=== PATIENT | female | born 1975 | race Caucasian/White ===

== ENCOUNTER 2017-11-06 10:20 | Emergency (ER) | payer SELFPAY ==
[~2017-11-06] VITALS: Ht 167.6 cm; Wt 97.1 kg
[~2017-11-06 10:20] MED LIST: ALPRAZOLAM PO; BACTRIM DS 8001 TAB PO; BACTROBAN2% NS; CEPHALEXIN500 M1 PO; DESYREL 50MG50 MG PO; DESYREL DIVIDO150 M1; DOXYCYCLINE 10100 MG PO; EC NAPROSYN375 MG PO; FLEXERIL 1010 MG/TAB PO; FLEXERIL10 MG PO; KLONOPIN 0.5MG0.5 MG PO; MACROBID 1100 MG/CAP PO; MONISTAT 3 COMB1 KI1; NORCO 325 MG-51 TAB PO; PEN-VEE K500 MG PO; PRIL40 PO; REMERON15 MG PO; ULTRAM50 MG PO; ZOFRAN 4MG T4 MG/TAB PO
[2017-11-06 10:26] VITALS: BP 162/103; PULSE 114; TEMP 97.5
[2017-11-06] MEDS ORDERED: PEN-VEE K500 MG PO (10:40)
[2017-11-06] MEDS ORDERED: NORCO 325 MG-51 TAB PO ×2 (10:40→10:45)
== END 2017-11-06 10:51 | disposition home or self-care (01) ==
LOC: COL.ER 10:20
DX: K08.89 Other specified disorders of teeth and supporting structures (principal); F41.9 Anxiety disorder, unspecified; F17.210 Nicotine dependence, cigarettes, uncomplicated

== ENCOUNTER 2017-11-12 19:50 | Emergency (ER) | payer SELFPAY ==
[~2017-11-12] VITALS: Ht 167.6 cm; Wt 97.7 kg
[2017-11-12 19:58] VITALS: BP 133/87; TEMP 98
[2017-11-12] MEDS ORDERED: AMOXICILLIN/CLA1 TA1 PO (20:22)
[2017-11-12] MEDS ORDERED: NEXIUM 24HR20 M1 PO (20:24)
[2017-11-12 20:31] VITALS: PULSE 79
== END 2017-11-12 20:31 | disposition home or self-care (01) ==
LOC: COL.ER 19:50
DX: K05.6 Periodontal disease, unspecified (principal); F41.9 Anxiety disorder, unspecified; F17.210 Nicotine dependence, cigarettes, uncomplicated

== ENCOUNTER 2018-02-22 13:22 | Emergency (ER) | payer MEDICAID ==
[~2018-02-22] VITALS: Ht 12.8 cm; Wt 81.8 kg
[~2018-02-22 13:22] MED LIST changes: +AMOXICILLIN/CLA1 TA1 PO; +NEXIUM 24HR20 M1 PO
[2018-02-22 13:25] VITALS: BP 125/77
[2018-02-22] MEDS ORDERED: ADVIL200 MG PO (13:31)
[2018-02-22] MEDS ORDERED: NORCO 325 MG-51 TAB PO (14:06)
[2018-02-22] MEDS ORDERED: AMOXICILLIN 50500 MG PO (14:06)
[2018-02-22 14:12] VITALS: PULSE 102; TEMP 97
== END 2018-02-22 14:11 | disposition home or self-care (01) ==
LOC: COL.ER 13:22
DX: K02.9 Dental caries, unspecified (principal); I10 Essential (primary) hypertension; F41.9 Anxiety disorder, unspecified; F17.210 Nicotine dependence, cigarettes, uncomplicated

== ENCOUNTER 2021-01-16 08:26 | Emergency (ER) | payer MEDICAID ==
[~2021-01-16] VITALS: Ht 167.6 cm; Wt 90.9 kg
[~2021-01-16 08:26] MED LIST changes: +ADVIL200 MG PO; +AMOXICILLIN 50500 MG PO
[2021-01-16 08:32] VITALS: TEMP 98.3
[2021-01-16 09:39] LABS: BASO # 0.1 K/mm3 (0.0-0.2); BASO % 0.3 % (0.0-2.0); EOS % 0.1 % (0-4.0); GRAN # 13.3 K/mm3 (1.4-6.5); GRAN % 87.7 % (42.2-75.2); HEMATOCRIT 45.4 % (37.0-47.0); LYMPH # 1.1 K/mm3 (1.2-3.4); LYMPH % 7.1 % (20.0-51.0); MEAN CELL VOLUME 99 fl (80.0-100.0); MEAN CORPUSCULAR HEMOGLOBIN 33 pg (27.0-31.0); MEAN CORPUSCULAR HGB CONC 33 g/dl (33.0-37.0); MEAN PLATELET VOLUME 12.1 fl (7.4-10.4); MONO # 0.7 K/mm3 (0.1-0.6); MONO % 4.3 % (1.7-9.3); PLATELET COUNT 311 K/mm3 (130-400); RED BLOOD COUNT 4.59 M/mm3 (4.10-5.30); REDCELL DISTRIBUTION WIDTH-CV 18.6 % (11.5-14.5)
[2021-01-16 09:52] LABS: ALBUMIN 4.5 gm/dL (3.5-5.0); C-REACTIVE PROTEIN 1.4 mg/dL (0.00-0.50); CALCIUM 10.7 mg/dL (8.4-10.2); CREATININE, serum 0.74 mg/dL (0.57-1.11); POTASSIUM 3.7 mmol/L (3.5-4.5)
[2021-01-16] MEDS ORDERED: PRINZIDE 12.5 M1 TAB PO (11:13)
[2021-01-16] MEDS ORDERED: ZOFRAN ODT4 MG PO (11:14)
[2021-01-16] MEDS ORDERED: AMOXICILLIN 50500 MG PO (11:34)
[2021-01-16 11:47] VITALS: BP 132/99; PULSE 98
[2021-01-23] MEDS ORDERED: NEXIUM 20MG20 MG PO (11:19)
[2021-01-23] MEDS ORDERED: MOTRIN 600600 MG/TAB PO (16:02)
[2021-01-23] MEDS ORDERED: NORCO 325 MG-51 TAB PO (16:02)
== END 2021-01-16 11:52 | disposition home or self-care (01) ==
LOC: COL.ER 08:26
PROVIDERS: Family Medicine
DX: S02.5XXA Fracture of tooth (traumatic), initial encounter for closed fracture (principal); K80.20 Calculus of gallbladder without cholecystitis without obstruction; K04.7 Periapical abscess without sinus; I10 Essential (primary) hypertension; F17.210 Nicotine dependence, cigarettes, uncomplicated; Z20.822 Contact with and (suspected) exposure to COVID-19; X58.XXXA Exposure to other specified factors, initial encounter
CPT/HCPCS: J2405; J7120; Q9967

== ENCOUNTER → 2021-01-23 | Day surgery (SDC) | payer MEDICAID ==
[2021-01-23] VITALS (7 sets, daily range): BP systolic 104–126; BP diastolic 78–88; PULSE 90–134; TEMP 97.8–99.3
[~2021-01-23] VITALS: Ht 167.6 cm; Wt 101.6 kg
[~2021-01-23] MED LIST changes: +MOTRIN 600600 MG/TAB PO; +NEXIUM 20MG20 MG PO; +PRINZIDE 12.5 M1 TAB PO; +ZOFRAN ODT4 MG PO
[2021-01-23 11:50] LABS: BASO # 0.1 K/mm3 (0.0-0.2); BASO % 0.4 % (0.0-2.0); EOS % 0.1 % (0-4.0); GRAN # 17.2 K/mm3 (1.4-6.5); GRAN % 87.4 % (42.2-75.2); HEMATOCRIT 47.2 % (37.0-47.0); HEMOGLOBIN 15.8 g/dl (12.5-16.0); LYMPH # 1.2 K/mm3 (1.2-3.4); MEAN CELL VOLUME 99 fl (80.0-100.0); MEAN CORPUSCULAR HEMOGLOBIN 33 pg (27.0-31.0); MEAN CORPUSCULAR HGB CONC 34 g/dl (33.0-37.0); MEAN PLATELET VOLUME 12.6 fl (7.4-10.4); MONO # 1.1 K/mm3 (0.1-0.6); MONO % 5.3 % (1.7-9.3); PLATELET COUNT 291 K/mm3 (130-400); RED BLOOD COUNT 4.79 M/mm3 (4.10-5.30); REDCELL DISTRIBUTION WIDTH-CV 18.2 % (11.5-14.5)
[2021-01-23 11:52] LABS: INR 1.1 (0.8-3.0); PROTHROMBIN TIME 11.7 SECONDS (9.7-12.8)
[2021-01-23 11:57] LABS: ALBUMIN 4.3 gm/dL (3.5-5.0); BILIRUBIN,TOTAL 1.1 mg/dL (0.2-1.2); CALCIUM 10.9 mg/dL (8.4-10.2); CREATININE, serum 0.85 mg/dL (0.57-1.11); POTASSIUM 3.4 mmol/L (3.5-4.5); TOTAL PROTEIN 8.6 gm/dL (6.2-8.1)
--- NOTE | 2021-01-23 15:40 | NUR ---
Patient returns to room 3 per cart from PACU and is alert and sitting up on the cart. Denies pain or nausea. IV fluids infusing and site is free of redness or swelling. Taking water. Siderails up x2 and call light in reach. Abdominal incisions x5 on abdomen are intact with wound edges well approixmated.
--- NOTE | 2021-01-23 15:55 | NUR ---
Resting and talking with friend.
--- NOTE | 2021-01-23 16:10 | NUR ---
Resting and sipping on water. Continues to deny pain.
--- NOTE | 2021-01-23 16:25 | NUR ---
Resting with eyes closed when not disturbed.
--- NOTE | 2021-01-23 16:40 | NUR ---
Continues to rest and drink water. Denies pain at present time.
--- NOTE | 2021-01-23 17:15 | NUR ---
Assisted up to the bathroom and voids. Complains of pain with movement.
--- NOTE | 2021-01-23 17:26 | NUR ---
Medicated with Ledbetter 5mg one tab for complaints of pain. Eating applesauce.
--- NOTE | 2021-01-23 17:45 | NUR ---
IV discontinued and site is free of redness. Patient dresses self. Dismissal instructions given and informed that scripts would be availalbe for pick up and delivery driver at [facility].
--- NOTE | 2021-01-23 17:49 | NUR ---
Patient dismissed to home driven by friend and taken to the vehicle per wheelchair and assisted into vehicle.
== END ==
LOC: SDCO 10:24
PROVIDERS: Surgery
DX: K80.10 Calculus of gallbladder with chronic cholecystitis without obstruction (principal); I10 Essential (primary) hypertension; G89.29 Other chronic pain; K21.9 Gastro-esophageal reflux disease without esophagitis; E66.9 Obesity, unspecified; F17.210 Nicotine dependence, cigarettes, uncomplicated; F10.10 Alcohol abuse, uncomplicated; Z79.899 Other long term (current) drug therapy; Z98.51 Tubal ligation status
CPT/HCPCS: J0690; J1100; J1885; J2370; J2405; J2704; J3010; J7050; J7120; Q9967

== ENCOUNTER → 2021-04-07 | Outpatient (CLI) | payer MEDICAID | LOC: MC.RAD 10:03 | DX: Z12.31 Encounter for screening mammogram for malignant neoplasm of breast (principal) ==

== ENCOUNTER → 2022-06-25 | Outpatient (CLI) | payer MEDICAID ==
[~2022-06-25] MED LIST changes: +LAMICTAL 25MG T25 MG PO; +METAMUCIL0.52 G1 PO; +MIRALAX510G PO; +PROTONIX 40MG T40 MG PO
== END ==
LOC: MC.RAD 08:33
DX: Z12.31 Encounter for screening mammogram for malignant neoplasm of breast (principal)

== ENCOUNTER 2022-09-02 13:25 | Emergency (ER) | payer MEDICAID ==
[~2022-09-02] VITALS: Ht 167.6 cm; Wt 89.5 kg
[2022-09-02 13:54] VITALS: BP 114/79; PULSE 77; TEMP 98
[2022-09-02] MEDS ORDERED: AMOXICILLIN 8751 TAB PO (14:13)
[2022-09-02] MEDS ORDERED: NORCO 325 MG-51 TAB PO (14:14)
== END 2022-09-02 15:00 | disposition home or self-care (01) ==
LOC: COL.ER 13:25
DX: K04.7 Periapical abscess without sinus (principal); Z88.5 Allergy status to narcotic agent
CPT/HCPCS: J1885

== ENCOUNTER → 2023-06-28 | Outpatient (CLI) | payer MEDICAID ==
[~2023-06-28] MED LIST changes: +AMOXICILLIN 8751 TAB PO; +MEDROL 4MG DOSPA4 MG PO
== END ==
LOC: MC.RAD 10:50
DX: Z12.31 Encounter for screening mammogram for malignant neoplasm of breast (principal)